=== PATIENT | male | born 1970 | race Caucasian/White ===

== ENCOUNTER 2018-12-23 16:09 | Emergency (ER) | payer OTHER ==
[2018-12-23 16:30] VITALS: BP 109/67
--- NOTE | 2018-12-23 16:54 | UC ---
Skin Complaint HPI - HPI Summary HPI Summary: bug bite on neck behind left ear---itching and dermititis has spread over the past 3 days---area itches badly treating with Benadryl cream without mush relief -- - History of Current Complaint Chief Complaint: UCRash Time Seen by Provider: 12/23/18 16:43 Stated Complaint: RASH Hx Obtained From: Patient Onset/Duration: Sudden Onset Skin Exposure Onset/Duration: Days Ago - 3 Timing: Constant Pain Intensity: 0 Location: Face - left side of face and neck Character: Pruritus, Redness, Raised Aggravating Factor(s): Nothing Alleviating Factor(s): Nothing Associated Signs & Symptoms: Positive: Rash - left side of neck and face Related History: Possible Reaction to: Insect - Allergy/Home Medications Allergies/Adverse Reactions: Allergies Allergy/AdvReac Type Severity Reaction Status Date / Time No Known Allergies Allergy Verified 12/23/18 16:30 PMH/Surg Hx/FS Hx/Imm Hx Previously Healthy: No Psychological History: Depression - Surgical History Surgical History: Yes Surgery Procedure, Year, and Place: T&A, AXILLARY LYMPH NODE REMOVED - Family History Known Family History: Positive: None - Social History Occupation: Employed Full-time Lives: With Family Alcohol Use: Daily Substance Use Type: None Smoking Status (MU): Never Smoked Tobacco Review of Systems All Other Systems Reviewed And Are Negative: Yes Constitutional: Positive: Negative Skin: Positive: Rash Eyes: Positive: Negative ENT: Positive: Negative Respiratory: Positive: Negative Cardiovascular: Positive: Negative Gastrointestinal: Positive: Negative Genitourinary: Positive: Negative Motor: Positive: Negative Neurovascular: Positive: Negative Musculoskeletal: Positive: Negative Neurological: Positive: Negative Psychological: Positive: Negative Is Patient Immunocompromised?: No Physical Exam Triage Information Reviewed: Yes Appearance: Well-Appearing, No Pain Distress, Well-Nourished Vital Signs: Initial Vital Signs Temp 98.7 F 12/23/18 16:27 Pulse 80 12/23/18 16:27 Resp 18 12/23/18 16:27 BP 109/67 12/23/18 16:27 Pulse Ox 100 12/23/18 16:27 Vital Signs Reviewed: Yes Eye Exam: Normal Eyes: Positive: Conjunctiva Clear ENT Exam: Normal ENT: Positive: Normal ENT inspection, Hearing grossly normal. Negative: Nasal congestion, Trismus, Muffled voice, Hoarse voice Dental Exam: Normal Neck exam: Normal Neck: Positive: Supple, Nontender, No Lymphadenopathy Respiratory Exam: Normal Respiratory: Positive: Chest non-tender, No respiratory distress, No accessory muscle use Cardiovascular Exam: Normal Cardiovascular: Positive: RRR, Pulses Normal, Brisk Capillary Refill Musculoskeletal Exam: Normal Musculoskeletal: Positive: Strength Intact, ROM Intact, No Edema Neurological Exam: Normal Neurological: Positive: Alert, Muscle Tone Normal Psychological Exam: Normal Skin Exam: Other Skin: Positive: Other - itchy papular rash Course/Dx - Course Course Of Treatment: cool wes, hydrocort and the prednisone in the morning---benadryl po prn - Diagnoses Provider Diagnosis: Insect bite Discharge - Sign-Out/Discharge Documenting (check all that apply): Patient Departure All imaging exams completed and their final reports reviewed: No Studies - Discharge Plan Condition: Stable Disposition: HOME Prescriptions: predniSONE [Prednisone 20 MG TAB] 20 mg PO QAM #11 tablet Patient Education Materials: Contact Dermatitis (DC), Insect Bite or Sting (ED) Referrals: Kamron Carias MD [Primary Care Provider] - If Needed - Billing Disposition and Condition Condition: STABLE Disposition: Home
== END 2018-12-23 17:04 | disposition home or self-care (01) ==
LOC: UCEAST 16:09
DX: S10.96XA Insect bite of unspecified part of neck, initial encounter (principal); W57.XXXA Bitten or stung by nonvenomous insect and other nonvenomous arthropods, initial encounter; Y92.9 Unspecified place or not applicable; F32.9 Major depressive disorder, single episode, unspecified
CPT/HCPCS: 99212; G0463

== ENCOUNTER 2019-07-12 10:10 | Emergency (ER) | payer OTHER ==
[2019-07-12] MEDS ORDERED: Ketorolac *IM* INJ* 60 MG/2 ML VIAL IM ONE (11:18)
[2019-07-12] MEDS ORDERED: HYDROcodone/ACETAMIN 5-325 MG* 1 TAB PO ONE (11:19)
--- NOTE | 2019-07-12 11:23 | UC ---
Back Pain HPI - HPI Summary HPI Summary: 49-year-old male comes in with a chief complaint of low back pain. To the middle of night he was standing up urinating and when he reached down to pull up his pants he had sudden onset of low back pain in the midline. Pain radiates into both buttocks and down the posterior aspects of both legs. He did have normal urination is morning no difficulty controlling urine or bowels. When he walks he does feel like his hips are weak however he is unsure if it' s response to the pain or if there is actual weakness. No complaint of any numbness. No feeling of weakness in the knees ankles or feet. Patient has had intermittent back problems in the past but never anything this severe. He tried ibuprofen at 3 in the morning. - History of Current Complaint Chief Complaint: UCBackPain Stated Complaint: BACKPAIN Time Seen by Provider: 07/12/19 11:10 Pain Intensity: 1 - Allergies/Home Medications Allergies/Adverse Reactions: Allergies Allergy/AdvReac Type Severity Reaction Status Date / Time No Known Allergies Allergy Verified 07/12/19 10:31 Home Medications: Home Medications PARoxetine HCL TAB* [Paxil TAB*] 40 mg PO DAILY 09/06/18 [History Confirmed ] Cyclobenzaprine TAB* [Flexeril 10 MG TAB*] 10 mg PO TID PRN #15 tab MDD 3 [Rx] HYDROcodone/ACETAMIN 5-325 MG* [[place] 5-325 TAB*] 1 tab PO Q4H PRN #20 tab MDD 6 07/12/19 [Rx] Lidocaine PATCH 5%* [Lidoderm 5% Patch*] 1 patch TRANSDERM DAILY #10 patch 07/12 [Rx] PMH/Surg Hx/FS Hx/Imm Hx Previously Healthy: Yes - Surgical History Surgical History: Yes Surgery Procedure, Year, and Place: T&A, AXILLARY LYMPH NODE REMOVED - Family History Known Family History: Positive: None - Social History Alcohol Use: Daily Substance Use Type: None Smoking Status (MU): Never Smoked Tobacco Review of Systems All Other Systems Reviewed And Are Negative: Yes Constitutional: Positive: Negative Skin: Positive: Negative Eyes: Positive: Negative ENT: Positive: Negative Respiratory: Positive: Negative Cardiovascular: Positive: Negative Gastrointestinal: Positive: Negative Genitourinary: Positive: Negative Motor: Positive: Other - see hpi Neurovascular: Positive: Negative Musculoskeletal: Positive: Other: - see hpi Neurological/Mental Status: Positive: Other - see hpi Psychological: Positive: Negative Is Patient Immunocompromised?: No Physical Exam Triage Information Reviewed: Yes Appearance: Well-Appearing, Well-Nourished, Pain Distress - mild at rest, worse with any movement Vital Signs: Initial Vital Signs Temp 98.3 F 07/12/19 10:26 Pulse 65 07/12/19 10:26 Resp 16 07/12/19 10:26 BP 123/73 07/12/19 10:26 Pulse Ox 100 07/12/19 10:26 Vital Signs Reviewed: Yes Eye Exam: Normal Eyes: Positive: Conjunctiva Clear Neck: Positive: Supple Respiratory: Positive: No respiratory distress Musculoskeletal: Positive: Other: - For examination patient is lying on his back with pillows underneath his knees. He has normal sensation in the legs. Plantarflexion dorsiflexion are normal in strength bilaterally. Patient has increased pain with knee extension and flexion. Patient also has increased pain in the back with any attempt at hip flexion bilaterally. Neurological: Positive: Alert Psychological: Positive: Age Appropriate Behavior Skin Exam: Normal Back Pain Course/Dx - Course Course Of Treatment: And clinic patient received Toradol 60 mg IM and [place] 5/325. Patient's pain is improved and he was able to ambulate to the bathroom and back. He denies any weakness or difficulty controlling urine. Plan will be to continue with anti-inflammatories such as ibuprofen and also use topical lidocaine patch. I prescribed Flexeril to be used as needed and also [place]. Patient will follow- up with sports medicine. Discussed that if he has any neurologic deficits he needs to get reevaluated again right away. - Differential Dx/Diagnosis Provider Diagnosis: Low back pain radiating to both legs Discharge ED - Sign-Out/Discharge Documenting (check all that apply): Patient Departure All imaging exams completed and their final reports reviewed: No Studies - Discharge Plan Condition: Stable Disposition: HOME Prescriptions: Cyclobenzaprine TAB* [Flexeril 10 MG TAB*] 10 mg PO TID PRN #15 tab MDD 3 PRN Reason: Pain - Moderate HYDROcodone/ACETAMIN 5-325 MG* [[place] 5-325 TAB*] 1 tab PO Q4H PRN #20 tab MDD 6 PRN Reason: Pain - Moderate Lidocaine PATCH 5%* [Lidoderm 5% Patch*] 1 patch TRANSDERM DAILY #10 patch Patient Education Materials: Acute Low Back Pain (ED), Lumbar Radiculopathy (ED ) Referrals: Kamron Carias MD [Primary Care Provider] - [facility] [Provider Group] Additional Instructions: FOLLOW UP WITH SPORTS MEDICINE. GET REEVALUATED SOONER IF NOT IMPROVED OR WORSE; WEAKNESS, NUMBNESS, DIFFICULTY CONTROLLING BOWEL OR BLADDER OR ANY QUESTIONS OR CONCERNS. - Billing Disposition and Condition Condition: STABLE Disposition: Home
[2019-07-12 13:04] VITALS: BP 136/86
== END 2019-07-12 13:22 | disposition home or self-care (01) ==
LOC: UCEAST 10:10
DX: M54.5 Low back pain (principal); M79.605 Pain in left leg; M79.604 Pain in right leg
CPT/HCPCS: 96372; 99212; G0463; J1885